=== PATIENT | male | born 1995 | race Caucasian/White ===

== ENCOUNTER 2019-02-09 05:30 | Inpatient (IN) | payer OTHER ==
[2019-02-09] MEDS: SOD CHLORIDE 0.9% 0 ML IV (07:20)
[2019-02-09] MEDS: ACETAMINOPHEN 500 MG TAB PO (07:24)
[2019-02-09] MEDS ORDERED: ONDANSETRON 4 MG INJ IV (08:00)
[2019-02-09] MEDS: ACETAMINOPHEN 325 MG TAB PO (09:18)
[2019-02-09] MEDS: DIPHENHYDRAMINE 50 MG INJ IV (09:18)
[2019-02-09] MEDS: HYDROmorphONE 2 MG/ML SYG IV (09:38)
[2019-02-09] MEDS ORDERED: morphine 4 MG/ML VIAL IV (12:00)
[2019-02-09] MEDS: METHYLPREDNISOLONE 125 MG INJ IV (12:10)
[2019-02-10] MEDS ORDERED: ALBUTEROL HFA 8 GM INHALER INH
[2019-02-10] MEDS: SOD CHLORIDE 0.9% 1,000 ML IV ×2 (00:54→10:14)
[2019-02-10] MEDS: DOCUSATE SODIUM 100 MG CAP PO (10:14)
[2019-02-10] MEDS: HYDROXYUREA 500 MG CAP PO (10:54)
[2019-02-10] MEDS: DIPHENHYDRAMINE 50 MG INJ IV (12:26)
[2019-02-10] MEDS ORDERED: EPOETIN ALFA-EPBX (NON-ESRD 10,000 UNIT/ML VIAL SC (15:00)
== END 2019-02-10 16:50 | disposition home or self-care (01) | DRG 812 ==
LOC: E/R 05:30 → MS3 07:58
PROC: 30233N1 Transfusion of Nonautologous Red Blood Cells into Peripheral Vein, Percutaneous Approach (ICD-10-PCS; principal; 2019-02-09)
DX: D57.00 Hb-SS disease with crisis, unspecified (principal)
CPT/HCPCS: 36430; 71045; 80048; 80053; 81001; 83540; 83735; 84484; 84703; 85025; 85045; 85610; 85730; 86078; 86644; 86704; 86706; 86803; 86850; 86900; 86901; 86920; 87081; 87340; 93005; 99285-25